=== PATIENT | female | born 1980 | race Caucasian/White ===

== ENCOUNTER 2024-06-26 14:24 | Emergency (ER) | payer OTHER, SELFPAY ==
[2024-06-26 14:28] VITALS: BP 155/106
[2024-06-26 14:54] LABS: % Basophils 0.9 % (0-2); % Eosinophils 1.5 % (0-6); % Immature Granulocytes 0.2 % (0-0.5); % Lymphocytes 33.6 % (20.5-51.1); % Monocytes 12.1 % (1.7-9.3); % Neutrophils 51.7 % (42.2-75.2); Absolute Basophils 0.1 10^3/uL (0-0.2); Absolute Eosinophils 0.1 10^3/uL (0-0.7); Absolute Lymphocytes 2.2 10^3/uL (1.2-3.4); Absolute Monocytes 0.8 10^3/uL (0.1-0.6); Absolute Neutrophils 3.4 10^3/uL (1.4-6.5); Hematocrit 41.8 % (37.0-47.0); Hemoglobin 14.6 g/dL (12.0-16.0); Mean Corp Hgb Conc. 34.9 g/dL (33.0-37.0); Mean Corpuscular Hgb 32.2 pg (27.0-31.0); Mean Corpuscular Volume 92.3 fL (81.0-99.0); Mean Platelet Volume 10.7 fL (7.4-10.4); Nucleated Red Blood Cells % 0 %; Platelet Count 314 10^3/uL (130-400); Red Blood Cell Count 4.53 10^6/uL (4.20-5.40); Red Cell Dist. Width 12.3 % (11.5-14.5); White Blood Cell Count 6.6 10^3/uL (4.8-10.8)
[2024-06-26 15:19] LABS: ALT (SGPT) 139 U/L (0-35); AST (SGOT) 77 U/L (14-36); Albumin 5.2 g/dl (3.5-5.0); Alkaline Phosphatase 99 U/L (38-126); Blood Urea Nitrogen 8 mg/dl (7-17); Calcium 10.1 mg/dl (8.4-10.2); Carbon Dioxide 25 mmol/L (22-30); Chloride 98 mmol/L (98-107); Glucose 111 mg/dl (70-99); Lipase 126 U/L (23-300); Potassium 4.4 mmol/L (3.5-5.1); Sodium 137 mmol/L (135-145); Total Bilirubin 0.6 mg/dl (0.2-1.3); Total Protein 8.8 g/dl (6.3-8.2); eGFR > 60.00
[2024-06-26] MEDS: NSS 1000 IV (17:14)
[2024-06-26] MEDS: TORADOL 15 MG IV (17:15)
[2024-06-26] MEDS: ZOFRAN 4 MG IV (17:15)
[2024-06-26 17:18] VITALS: BP 150/100; BMI 29.2
[2024-06-26 17:46] LABS: HCG, Serum Qualitative Screen Negative
--- NOTE | 2024-06-26 18:08 | ED.GENMED ---
History of Present Illness
General
Chief Complaint: Abdominal Symptoms
Source: patient
Exam Limitations: none
Time Seen by Provider: 06/26/24 16:34
Nursing documentation reviewed up to this point in time: agreed with
History of Present Illness
History of Present Illness:
44-year-old female presenting to the emergency department today with concerns of right lower quadrant abdominal pain has had nausea vomiting and a few episodes of loose stool over the past 2 days. Pain mainly to the right lower quadrant remainder
of the abdomen without significant discomfort. History of hysterectomy no other abdominal surgeries
Past History
Past History
ED Past Medical History: None; Negative Asthma, HTN or Hypercholesterolemia
ED Past Surgical History: Gynecological (Hysterectomy)
Social History
Tobacco: Non-smoker
Alcohol: None
Drug: None
Personal:
Living: alone
Review of Systems
Review of Systems
Allergies reviewed?: Yes
All Other Systems: ROS reviewed and negative except as documented in HPI and ROS
Phy Exam
Physical Exam
Physical Exam:
GENERAL: Alert , in no apparent distress
EYE: pupils equal and reactive
NECK: Supple, no significant adenopathy.
ENT: o/p clr, mmm.
CARDIAC: Regular rate and rhythm .
LUNGS: Clear breath sounds bilaterally, no acute respiratory distress, no wheezes/rales/rhonchi
ABDOMEN: Right lower quadrant abdominal pain otherwise soft benign abdomen
NEUROLOGICAL: Alert and oriented, no focal neuro deficits
SKIN: Warm and dry, skin intact.
MUSCULOSKELETAL: No edema, well perfused.
PSYCH: Normal and appropriate interaction.
Course
Orders/Labs/Results
Orders:
Orders
06/26/24 14:35
Complete Blood Count/With Diff Urgent
Comprehensive Metabolic Panel Urgent
HCG, Serum Qualitative Screen Urgent
Comment: ADD ON
Lipase Urgent
06/26/24 17:00
Add On- LAB Urgent
Tests Added?: hcg qual
CT Abd/Pel (IV only)-DH only Urgent
Comment:
Reason For Exam: rlq pain
0.9% Sodium Chloride 1000 ml [Nss] 1,000 ml IV BOLUS
Ketorolac [Toradol] 15 mg IV NOW STA
Ondansetron Injectable [Zofran] 4 mg IV NOW STA
06/26/24 19:37
Urinalysis Reflex To Culture Urgent
Date Specimen was Collected: 06/26/24
Time Specimen was Collected: 19:36
Abnormal Lab Results
06/26/24
14:35
MCH 32.2 H pg
(27.0-31.0)
MPV 10.7 H fL
(7.4-10.4)
Absolute Monos (auto) 0.8 H 10^3/uL
(0.1-0.6)
Monocytes % 12.1 H %
(1.7-9.3)
Glucose 111 H mg/dl
(70-99)
AST 77 H U/L
(14-36)
ALT 139 H U/L
(0-35)
Total Protein 8.8 H g/dl
(6.3-8.2)
Albumin 5.2 H g/dl
(3.5-5.0)
06/26/24 14:35
06/26/24 14:35
Vital Signs
Initial and Last Documented VS:
Initial Vital Signs
Temp Pulse Resp BP Pulse Ox
98.2 F 103 16 155/106 98
06/26/24 14:06/26/24 14:28 06/26/24 14:06/26/24 14:06/26/24 14:28
Last Documented Vital Signs
Temp Pulse Resp BP Pulse Ox
98.2 F 80 18 150/100 97
06/26/24 14:06/26/24 17:18 06/26/24 17:18 06/26/24 17:18 06/26/24 17:18
MDM/Problems Addressed
MDM/Problems Addressed:
44-year-old female presenting to the emergency department today with concerns of right lower quadrant [place] pain over the past 2 days. Also has had some nausea intermittent vomiting and some loose stool. Reproducible pain to the right lower
quadrant here. Plan for CT scan for further assessment. Patient was given pain medication as well as nausea medication with significant improvement of symptoms. No ongoing symptoms here. CT scan without signs of appendicitis no obvious bowel
obstruction well-appearing here stable for outpatient management return precautions given.
*Critical Care Note
Total Time (30-74mins, 75-104mins- exclusive of procedures): Not Applicable
ED Attending Note
-
Portions of this chart may have been created with voice recognition software.� Occasional wrong word or��sound alike� substitutions may have occurred due to the inherent limitations of voice recognition software.
Discharge Plan
Departure
Patient Disposition: Home (Routine Discharge)
Date of Disposition: 06/26/24
Time of Disposition: 19:51
Patient with high blood pressure during this ER visit?: No
Condition: Good
Covid-19: Not Applicable
Discharge Problem:
Abdominal pain, Transaminitis
Instructions: Nausea and Vomiting, Adult (DC), Abdominal Pain
Prescriptions:
New
ondansetron 4 mg tablet,disintegrating
4 mg PO Q6H PRN (Reason: nausea and vomiting) Qty: 7 0RF
Referrals:
Stephen Rueda MD [Family Provider] -
Activity Restrictions/Additional Instructions:
You came to the emergency department today with concerns of abdominal pain. Here you have a reassuring assessment. This could be related to recent stomach bug though there is some uncertainty. If you have any worsening or progressive symptoms
please immediately return for reassessment. Otherwise here you did have some slight elevation of your liver function test. Please follow closely with a primary care within the next few weeks to have these repeated to ensure these are improved
appropriately.
Interventions
Interventions:
*Risk Screen - Suicide Last Done: 06/26/24 14:28
*General Assessment Last Done: 06/26/24 14:28
*Neglect/Abuse Screening Last Done: 06/26/24 14:28
*ED COVID-19 Vaccine History Last Done: 06/26/24 17:17
DM-Idrbok-Knzxkfxoaz Assessment Last Done: 06/26/24 17:15
Discharge Date and Time
Print Language: [place]ET[place]ESE
[2024-06-26 19:51] VITALS: BP 148/92
[2024-06-26 20:00] LABS: Urine Albumin Negative (Neg - Trace); Urine Bilirubin Negative (Negative); Urine Character Clear (Clear); Urine Color Yellow; Urine Glucose Negative (Negative); Urine Ketone 2+ (Negative); Urine Leukocyte 2+ (Negative); Urine Nitrite Negative (Negative); Urine Occult Blood Negative (Negative); Urine Specific Gravity 1.005 (<1.030); Urine Urobilinogen Negative (Neg - 1+)
[2024-06-26 20:24] LABS: Urine Bacteria Few (Negative); Urine Red Blood Cell 0-2 /HPF (0-2)
== END 2024-06-26 20:20 | disposition home or self-care (01) ==
LOC: EMR 14:24
PROVIDERS: Physician Assistant; Student in an Organized Health Care Education/Training Program; EMERGENCY PHYSICIAN Emergency Medicine; FAMILY PHYSICIAN Family Medicine
DX: R10.31 Right lower quadrant pain (principal); R74.01 Elevation of levels of liver transaminase levels; R11.2 Nausea with vomiting, unspecified; Z90.710 Acquired absence of both cervix and uterus
CPT/HCPCS: 96374; 96375; 96361; 99284; 74177; 80053; 81003; 81015; 83690; 84703; 85025; 87086; Q9967

== ENCOUNTER 2024-10-14 09:03 | Emergency (ER) | payer BC, SELFPAY ==
[2024-10-14 09:05] VITALS: BP 157/102
[2024-10-14 09:32] VITALS: BP 125/92
--- NOTE | 2024-10-14 09:36 | ED.GENMED ---
History of Present Illness
General
Chief Complaint: Abdominal Pain
Source: patient
Exam Limitations: none
Time Seen by Provider: 10/14/24 09:35
Nursing documentation reviewed up to this point in time: agreed with
History of Present Illness
History of Present Illness:
44-year-old female presents to the emergency department complaining of right upper quadrant right lower quadrant abdominal pain since yesterday. She denies any diarrhea, but occasional nausea. She has never had pain like this before.
Past History
Past History
ED Past Medical History: None; Negative Asthma, HTN or Hypercholesterolemia
ED Past Surgical History: Gynecological (Hysterectomy)
Social History
Tobacco: Non-smoker
Alcohol: None
Drug: None
Personal:
Living: alone
Review of Systems
Review of Systems
Allergies reviewed?: Yes
All Other Systems: Not applicable
Constitutional: Reports no symptoms
EENT: Reports no symptoms
Respiratory: Reports no symptoms
Cardiac: Reports no symptoms
ABD/GI: Reports abdominal pain and nausea
: Reports no symptoms
Musculoskeletal: Reports no symptoms
Skin: Reports no symptoms
Neurological: Reports no symptoms
Endocrine: Reports no symptoms
Hematologic/Lymphatic: Reports no symptoms
Psychiatric: Reports no symptoms
Phy Exam
Physical Exam
Physical Exam:
Physical Exam
General: no apparent distress, not acutely ill
Neck: supple. no meningeal signs. normal posterior pharynx
Heart: s1/s2 regular rate and rhythm, no murmur. equal radial
pulses.
HEENT: Pupils equal round reactive to light, EOMI
Lungs: no acute respiratory distress. clear bilaterally
Abdomen: normal bowel sounds. Right upper and lower abdominal tenderness no CVAT
Neuro: alert and oriented. no focal neurological deficits
Skin: no rash
Psychiatric: well kept. interactive and cooperative
Extremities: no edema. no calf tenderness. negative homans. good distal pulses
Course
Orders/Labs/Results
Orders:
Orders
10/14/24 09:07
EKG [Electrocardiogram (*1)] Urgent
Reason for Study: Abdominal Pain
EKG- Treatment ONCE
10/14/24 09:41
IV Insert/Care/Rem.- Treatment PRN
Test Result ONCE
10/14/24 09:42
CT Abd/Pel (IV only)-[facility] only Urgent
Comment:
Reason For Exam: right upper and lower abdominal pain since yesterd
10/14/24 09:56
Complete Blood Count/With Diff Urgent
Comprehensive Metabolic Panel Urgent
HCG, Serum Qualitative Screen Urgent
Lipase Urgent
Urinalysis Reflex To Culture Urgent
Date Specimen was Collected: 10/14/24
Time Specimen was Collected: 09:46
10/14/24 10:11
Acetaminophen [Tylenol] 650 mg PO NOW STA
Abnormal Lab Results
10/14/24
09:56
MCH 32.2 H pg
(27.0-31.0)
MPV 11.0 H fL
(7.4-10.4)
Absolute Monos (auto) 0.8 H 10^3/uL
(0.1-0.6)
Monocytes % 13.7 H %
(1.7-9.3)
Calcium 10.3 H mg/dl
(8.4-10.2)
AST 47 H U/L
(14-36)
ALT 94 H U/L
(0-35)
Total Protein 8.4 H g/dl
(6.3-8.2)
Urine Ketones 3+ A
(Negative)
10/14/24 09:56
10/14/24 09:56
Vital Signs
Initial and Last Documented VS:
Initial Vital Signs
Temp Pulse Resp BP Pulse Ox
98 F 100 16 157/102 100
10/14/24 09:05 10/14/24 09:05 10/14/24 09:05 10/14/24 09:05 10/14/24 09:05
Last Documented Vital Signs
Temp Pulse Resp BP Pulse Ox
98.1 F 89 18 148/105 96
10/14/24 09:32 10/14/24 11:51 10/14/24 11:51 10/14/24 11:51 10/14/24 11:51
MDM/Problems Addressed
Differential Diagnosis Includes:
Appendicitis, cholecystitis, bowel obstruction
MDM/Problems Addressed:
44-year-old female with abdominal pain, likely enteritis. No signs of cholecystitis or appendicitis. Incidental hypodensity seen on left lobe of liver. Patient coincidentally has MRI scheduled by her primary care doctor to be done on 10/16/2024.
I reaffirmed that she needs to keep this appointment. Return precautions given.
*Radiology
Radiology exam reviewed: radiology read reviewed (CT abdomen pelvis no acute findings, liver hypodensity, possible enteritis)
*Pulse Oximetry
Patient hypoxic: no
*EKG
Interpreted by ED Provider?: Yes
EKG Intrepretation Date: 10/14/24
EKG Intrepretation Time: 09:09
Interpretation: normal
Comparison EKG: no comparison EKG present
Heart Rate: 95
Rate: normal
Rhythm: sinus
[place]: normal axis
Interval: normal interval
QRS Pattern: normal QRS
Ischemia: no ischemia
*Business Information Consultant Interpretation
Rate: Business Information Consultant- N/A
*Critical Care Note
Total Time (30-74mins, 75-104mins- exclusive of procedures): Not Applicable
Patient Management
Social determinants of health affecting care: Living situation and Strong social support
Escalation/DeEscalation of care consider admission/obs:
Admit not indicated
ED Attending Note
-
Portions of this chart may have been created with voice recognition software.� Occasional wrong word or��sound alike� substitutions may have occurred due to the inherent limitations of voice recognition software.
Discharge Plan
Departure
Patient Disposition: Home (Routine Discharge)
Date of Disposition: 10/14/24
Time of Disposition: 12:15
Patient with high blood pressure during this ER visit?: Yes
Condition: Good
Discharge Problem:
Enteritis, Hypodense mass of left lobe of liver
Instructions: Abdominal Pain
Prescriptions:
No Action
ondansetron 4 mg tablet,disintegrating
4 mg PO Q6H PRN (Reason: nausea and vomiting) Qty: 7 0RF
Referrals:
Stephen Rueda MD [Family Provider] - Call in 1-3 days for appt
Activity Restrictions/Additional Instructions:
Follow-up with your primary care, and ensure that you get your MRI on Tuesday of your abdomen as scheduled.
Interventions
Interventions:
*Risk Screen - Suicide Last Done: 10/14/24 09:05
*General Assessment Last Done: 10/14/24 09:35
*Neglect/Abuse Screening Last Done: 10/14/24 09:05
*ED- Fall Risk Assessment Last Done: 10/14/24 09:35
*ED COVID-19 Vaccine History Last Done: 10/14/24 09:35
WB-Cbyinf-Cfjbbiylgb Assessment Last Done: 10/14/24 09:33
Discharge Date and Time
Print Language: NIUEAN
[2024-10-14 09:37] VITALS: BMI 25.1
[2024-10-14 10:13] LABS: Urine Albumin Negative (Neg - Trace); Urine Bilirubin Negative (Negative); Urine Character Clear (Clear); Urine Color Yellow; Urine Glucose Negative (Negative); Urine Ketone 3+ (Negative); Urine Leukocyte Negative (Negative); Urine Nitrite Negative (Negative); Urine Occult Blood Negative (Negative); Urine Specific Gravity 1.015 (<1.030); Urine Urobilinogen Negative (Neg - 1+)
[2024-10-14] MEDS: TYLENOL 650 MG PO (10:13)
[2024-10-14 10:19] LABS: HCG, Serum Qualitative Screen Negative
[2024-10-14 10:21] LABS: % Basophils 1.1 % (0-2); % Eosinophils 1.3 % (0-6); % Immature Granulocytes 0.2 % (0-0.5); % Lymphocytes 24.2 % (20.5-51.1); % Monocytes 13.7 % (1.7-9.3); % Neutrophils 59.5 % (42.2-75.2); Absolute Basophils 0.1 10^3/uL (0-0.2); Absolute Eosinophils 0.1 10^3/uL (0-0.7); Absolute Lymphocytes 1.3 10^3/uL (1.2-3.4); Absolute Monocytes 0.8 10^3/uL (0.1-0.6); Absolute Neutrophils 3.3 10^3/uL (1.4-6.5); Hemoglobin 15.6 g/dL (12.0-16.0); Mean Corp Hgb Conc. 34.7 g/dL (33.0-37.0); Mean Corpuscular Hgb 32.2 pg (27.0-31.0); Mean Corpuscular Volume 92.8 fL (81.0-99.0); Nucleated Red Blood Cells % 0 %; Platelet Count 296 10^3/uL (130-400); Red Blood Cell Count 4.85 10^6/uL (4.20-5.40); Red Cell Dist. Width 12.8 % (11.5-14.5); White Blood Cell Count 5.5 10^3/uL (4.8-10.8)
[2024-10-14 10:22] LABS: ALT (SGPT) 94 U/L (0-35); AST (SGOT) 47 U/L (14-36); Alkaline Phosphatase 85 U/L (38-126); Blood Urea Nitrogen 9 mg/dl (7-17); Calcium 10.3 mg/dl (8.4-10.2); Carbon Dioxide 23 mmol/L (22-30); Chloride 103 mmol/L (98-107); Estimated Creatinine Clearance 102 ml/min; Glucose 87 mg/dl (70-99); Lipase 146 U/L (23-300); Potassium 4.4 mmol/L (3.5-5.1); Sodium 138 mmol/L (135-145); Total Bilirubin 0.7 mg/dl (0.2-1.3); Total Protein 8.4 g/dl (6.3-8.2); eGFR > 60.00
[2024-10-14 11:51] VITALS: BP 148/105
== END 2024-10-14 12:28 | disposition home or self-care (01) ==
LOC: EMR 09:03
PROVIDERS: EMERGENCY PHYSICIAN Emergency Medicine; FAMILY PHYSICIAN Family Medicine
DX: K52.9 Noninfective gastroenteritis and colitis, unspecified (principal); R16.0 Hepatomegaly, not elsewhere classified
CPT/HCPCS: 99284; 74177; 80053; 81003; 83690; 84703; 85025; 93005; Q9967